=== PATIENT | male | born 1965 ===

== ENCOUNTER 2021-02-26 05:14 | Observation (INO) | payer OTHER ==
[~2021-02-26] VITALS: Ht 185.4 cm; Wt 90.0 kg
[2021-02-26 06:28] VITALS: BP 132/76
[2021-02-26] MEDS ORDERED: ACETAMINOPHEN 325 MG TABLET PO PRN (08:30)
[2021-02-26] MEDS ORDERED: LABETALOL 5MG/ML, 20ML IVPush PRN (08:30)
[2021-02-26] MEDS ORDERED: PLEASE ENTER ALLERGIES MC SCH (08:30)
[2021-02-26] MEDS ORDERED: NITROGLYCERIN 0.4 MG/SPRAY SL PRN (08:30)
[2021-02-26] MEDS ORDERED: morphine SULFATE 10 MG/ML, 1ML IVPush PRN (08:30)
[2021-02-26] MEDS ORDERED: NITROGLYCERIN 0.4 MG BOTTLE (25 TABS) SL PRN (08:30)
[2021-02-26 08:47] LABS: ANION GAP 6 mmol/L (5-15); CHLORIDE 108 mmol/L (98-107); CHOLESTEROL, TOTAL 184 mg/dL (140-239)
[2021-02-26 08:51] LABS: CHOL/HDL RATIO 2.4; HDL CHOL % 41 % (26-37); HDL CHOLESTEROL (DIRECT) 76 mg/dL (40-60); LDL CHOLESTEROL,CALCULATED 88 mg/dL (54-169); LDL/HDL RATIO 1.2 (0.5-3.0); TRIGLYCERIDES 98 mg/dL (50-200); TROPONIN I 0.191 ng/mL (0.000-0.045); VLDL CHOLESTEROL 20 mg/dL (0-25)
[2021-02-26] MEDS ORDERED: SODIUM CHLORIDE FLUSH 10ML SYR IVF SCH (09:00)
[2021-02-26] MEDS ORDERED: FAMOTIDINE 20 MG TABLET PO SCH (09:00)
[2021-02-26] MEDS ORDERED: ENOXAPARIN 40 MG/0.4 ML SQ SCH (09:30)
[2021-02-26 11:56] LABS: TROPONIN I 0.187 ng/mL (0.000-0.045)
[2021-02-26 15:20] VITALS: BP 135/92
[2021-02-27] MEDS ORDERED: ASPIRIN 325 MG TABLET EC PO SCH (06:00)
== END 2021-02-26 16:40 | disposition home or self-care (01) ==
LOC: INTOOBSV 06:02 → 5SO 06:02 → DCLOUNGE 16:31
PROVIDERS: ADMIT Internal Medicine; ATTEND Family Medicine
DX: R07.89 Other chest pain (principal); R00.0 Tachycardia, unspecified; R79.89 Other specified abnormal findings of blood chemistry; R03.0 Elevated blood-pressure reading, without diagnosis of hypertension; F15.129 Other stimulant abuse with intoxication, unspecified; F17.200 Nicotine dependence, unspecified, uncomplicated; Z79.899 Other long term (current) drug therapy
CPT/HCPCS: 36415; 80048; 80061; 83735; 84484; 93005; 93017; G0378; J1650